=== PATIENT | female | born 1990 | race Caucasian/White ===

== ENCOUNTER 2017-11-12 13:32 | Emergency (ER) | payer BC ==
[2017-11-12 13:59] VITALS: BP 140/86
--- NOTE | 2017-11-12 14:34 | EDM.PDOC ---
ED HPI GENERAL MEDICAL PROBLEM - General Chief Complaint: Lower Extremity Injury/Pain Stated Complaint: R FOOT INJURY Time Seen by Provider: 11/12/17 14:10 Source of Information: Reports: Patient History Limitations: Reports: No Limitations - History of Present Illness INITIAL COMMENTS - FREE TEXT/NARRATIVE: 27-year-old female tripped over her dog and turned her right foot underneath her earlier today. She has pain at the base of the lateral metatarsals. Mild swelling. No ankle pain. No other injury. 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 - Infectious Disease History Infectious Disease History: Reports: Chicken Pox - Past Surgical History HEENT Surgical History: Reports: Oral Surgery Musculoskeletal Surgical History: Reports: Ganglion Cyst Social & Family History - Tobacco Use Smoking Status *Q: Current Every Day Smoker Years of Tobacco use: 8 Packs/Tins Daily: 0.5 Review of Systems - Review of Systems Review Of Systems: See Below Constitutional: Denies: Fever Respiratory: Denies: Shortness of Breath Cardiovascular: Denies: Chest Pain Neurological: Denies: Paresthesia Psychiatric: Reports: No Symptoms ED EXAM, GENERAL - Physical Exam Exam: See Below Exam Limited By: No Limitations General Appearance: Alert, No Apparent Distress Respiratory/Chest: No Respiratory Distress Extremities: Other (Exam is otherwise limited to the right foot. She has tenderness at the base of the fifth metatarsal but no crepitus, deformity or significant swelling. The ankle is nontender) Course - Vital Signs Last Recorded V/S: Last Vital Signs Temp 97 F 11/12/17 14:03 Pulse 85 11/12/17 14:03 Resp 13 11/12/17 14:03 BP 140/86 11/12/17 14:03 Pulse Ox 97 11/12/17 14:03 - Orders/Labs/Meds Orders: Active Orders 24 hr Category Date Time Status Foot Comp Min 3V Rt [CR] Stat Exams 11/12/17 14:11 Taken - Re-Assessments/Exams Free Text/Narrative Re-Assessment/Exam: 11/12/17 14:32 X-ray of the right foot was negative for fracture. A three-inch Kaleb wrap was applied to the foot, she can increase her activity as tolerated and recheck in 5 -7 days if not improving satisfactorily. Departure - Departure Time of Disposition: 14:38 Disposition: Home, Self-Care 01 Condition: Good Clinical Impression: Sprain of foot, right Qualifiers: Encounter type: initial encounter Qualified Code(s): S93.601A - Unspecified sprain of right foot, initial encounter - Discharge Information Instructions: Foot Sprain Referrals: Deena Diaz CNM [Primary Care Provider] - Forms: ED Department Discharge Care Plan Goals: Wrap for comfort, elevate when able and ibuprofen or naproxen should help. Increase activity as tolerated and recheck in 5-7 days if not improving satisfactorily. - My Orders Last 24 Hours: My Active Orders 11/12/17 14:11 Foot Comp Min 3V Rt [CR] Stat - Assessment/Plan Last 24 Hours: My Active Orders 11/12/17 14:11 Foot Comp Min 3V Rt [CR] Stat
--- NOTE | 2017-11-14 10:07 | CR ---
Findings: No fracture or dislocation. Hypertrophic change at the first distal phalanx.
== END 2017-11-12 14:38 | disposition home or self-care (01) ==
LOC: JP.ED 13:32
DX: S93.601A Unspecified sprain of right foot, initial encounter (principal); F17.210 Nicotine dependence, cigarettes, uncomplicated; Z88.0 Allergy status to penicillin; Z88.8 Allergy status to other drugs, medicaments and biological substances; W01.198A Fall on same level from slipping, tripping and stumbling with subsequent striking against other object, initial encounter
CPT/HCPCS: 73630-26-RT; 73630-RT; 99284

== ENCOUNTER 2019-06-17 08:40 | Inpatient (IN) | payer BC ==
[2019-06-17] MEDS ORDERED: Misoprostol 50 MCG (1/2 of 100 MCG) Tab VAG ONE ×2 (08:43→12:25)
[2019-06-17] MEDS ORDERED: Sodium Chloride 0.9% 10 ML Syringe FLUSH PRN (08:53)
--- NOTE | 2019-06-17 09:11 | PCM.LDHP ---
L&D History of Present Illness - General Date of Service: 06/17/19 (planned induction) Admit Problem/Dx: Patient Status Order with Admit Dx/Problem 06/17/19 08:53 Patient Status [ADT] Routine Admission Diagnosis/Problem Admission Diagnosis/Problem Source of Information: Patient History Limitations: Reports: No Limitations - History of Present Illness Introduction:: 29 year old who is 39 weeks gestation. Here for planned induction. History of 2 previous shoulder dystocia. Current fetus with right club foot. reactive NST this morning. nonsmoker. recent gastroenteritis on resolved. Labs: GBS neg, HIV neg, ABO O pos, Rubella immune Timing/Duration: Reports: minutes: (3) Location, : Reports: Abdomen Severity: Mild Improves with: Reports: None Worsens with: Reports: None - Related Data Allergies/Adverse Reactions: Allergies Allergy/AdvReac Type Severity Reaction Status Date / Time ceftazidime pentahydrate Allergy Severe Hives Verified 06/17/19 09:15 [From Fortaz] Penicillins Allergy Mild Rash Verified 06/17/19 09:15 Home Medications: Home Meds Aspirin [Ecotrin EC] 81 mg PO DAILY 01/29/19 [History] Pnv No.95/Ferrous Fum/Folic AC [ Caplet] 1 tab PO DAILY 01/29/19 [ History] Past Medical History - Past Health History Medical/Surgical History: Denies Medical/Surgical History HEENT History: Reports: Impaired Vision CANDLE MOLDER History: Reports: , Spontaneous : 4 Para: 2 LMP (Approximate): (MAXIMILIANO 06/24/19) Hematologic History: Reports: Other (See Below) 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 - Infectious Disease History Infectious Disease History: Reports: Chicken Pox - Past Surgical History HEENT Surgical History: Reports: Oral Surgery Musculoskeletal Surgical History: Reports: Ganglion Cyst H&P Review of Systems - Review of Systems: Review Of Systems: See Below General: Reports: No Symptoms HEENT: Reports: No Symptoms Pulmonary: Reports: No Symptoms Cardiovascular: Reports: No Symptoms Gastrointestinal: Reports: No Symptoms Genitourinary: Reports: No Symptoms Musculoskeletal: Reports: No Symptoms Skin: Reports: No Symptoms Psychiatric: Reports: No Symptoms Neurological: Reports: No Symptoms Hematologic/Lymphatic: Reports: No Symptoms Immunologic: Reports: No Symptoms L&D Exam - Exam Exam: See Below - OB Specific Contraction Intensity: Mild Movement: Active Heart Tones: Present Heart Rate (FHR) Variability: Moderate (6-25 bmp) Presentation: Vertex Estimated Weight: 7-8 pounds - Hart Score Hart Score Cervix Position: Midposition Hart Score Consistency: Soft Hart Score Effacement: 51-70% Hart Score Dilation: 1-2 cm Hart Score Infant's Station: -1 ,0 Hart Score Total: 8 - Exam General: Alert, Oriented HEENT: PERRLA Neck: Supple Lungs: Clear to Auscultation, Normal Respiratory Effort Cardiovascular: Regular Rate, Regular Rhythm GI/Abdominal Exam: Normal Bowel Sounds, Soft Genitourinary: Normal external exam, Cervical dilitation, Enlarged uterus Back Exam: Normal Inspection Extremities: Normal Range of Motion, No Pedal Edema, Normal Capillary Refill Skin: Warm, Dry, Intact Neurological: Reflexes Equal Bilateral Psychiatric: Alert, Normal Affect, Normal Mood - Problem List (1) Encounter for planned induction of labor SNOMED Code(s): 853590015 ICD Code: Z34.90 - ENCNTR FOR SUPRVSN OF NORMAL , UNSP, UNSP TRIMESTER Status: Acute Current Visit: Yes (2) SNOMED Code(s): 81148010 ICD Code: Z34.90 - ENCNTR FOR SUPRVSN OF NORMAL , UNSP, UNSP TRIMESTER Status: Acute Current Visit: Yes Qualifiers: Weeks of gestation: 39 weeks Qualified Code(s): Z3A.39 - 39 weeks gestation of Problem List Initiated/Reviewed/Updated: Yes Orders Last 24hrs: Active Orders 24 hr Category Date Time Status Patient Status [ADT] Routine ADT 06/17/19 08:53 Active Communication Order [RC] ASDIRECTED Care 06/17/19 08:53 Active Heart Tones [RC] PER UNIT ROUTINE Care 06/17/19 08:53 Active Non Stress Test [RC] Click to Edit Care 06/17/19 08:53 Active May Shower [RC] ASDIRECTED Care 06/17/19 08:53 Active Notify Provider Vital Signs [RC] PRN Care 06/17/19 08:53 Active Notify Provider [RC] PRN Care 06/17/19 08:53 Active Up ad Susan [RC] ASDIRECTED Care 06/17/19 08:53 Active Vital Signs [RC] PER UNIT ROUTINE Care 06/17/19 08:53 Active CBC WITH AUTO DIFF [HEME] Routine Lab 06/17/19 08:46 Ordered DRUG SCREEN, URINE [URCHEM] Routine Lab 06/17/19 08:44 Ordered URINALYSIS W/MICROSCOPIC [UA W/MICROSCOPIC] [URIN] Lab 06/17/19 08:44 Ordered Routine Oxytocin/Normal Saline [Pitocin in NS 20 Units/1,000 ML Med 06/17/19 08:57 Ordered ] 20 unit in 1,000 ml IV ONETIME Sodium Chloride 0.9% [Saline Flush] Med 06/17/19 08:53 Ordered 10 ml FLUSH ASDIRECTED PRN Saline Lock Insert [OM.PC] Routine Oth 06/17/19 08:53 Ordered Resuscitation Status Routine Resus Stat 06/17/19 08:53 Ordered Medication Orders Oxytocin/Sodium Chloride (Pitocin In Ns 20 Units/1,000 Ml) 20 unit in 1,000 mls @ 999 mls/hr IV ONETIME ONE; Protocol Stop: 06/17/19 09:57 Sodium Chloride (Saline Flush) 10 ml FLUSH ASDIRECTED PRN PRN Reason: Keep Vein Open Assessment/Plan Comment:: 06/17/19 29 year old 39 weeks induction of labor. [place] 8. reactive NST CE: baseline heart rate 145, cat one strip HGB 11.6, PLT 227 Plan: monitor for active labor reassess at noon plan for epidural later
[2019-06-17] MEDS ORDERED: Misoprostol 25 MCG (1/4 of 100 MCG) Tab ONE (13:05)
--- NOTE | 2019-06-17 13:11 | PCM.PNLD ---
Labor Progress Note - VS & Meds Vital Signs: Last Vital Signs Temp 95.5 F 06/17/19 09:30 Pulse 81 06/17/19 11:30 Resp 16 06/17/19 11:30 BP 129/78 06/17/19 11:30 Pulse Ox 96 06/17/19 11:30 Active Medications: Current Medications Oxytocin/Sodium Chloride (Pitocin In Ns 20 Units/1,000 Ml) 20 unit in 1,000 mls @ 999 mls/hr IV ASDIRECTED GERTRUDE; Protocol Sodium Chloride (Saline Flush) 10 ml FLUSH ASDIRECTED PRN PRN Reason: Keep Vein Open Discontinued Medications Misoprostol (Cytotec) 50 mcg VAG ONETIME ONE Stop: 06/17/19 08:44 Last Admin: 06/17/19 08:51 Dose: 50 mcg Misoprostol (Cytotec) 25 mcg VAG ONETIME ONE Stop: 06/17/19 12:26 Last Admin: 06/17/19 13:08 Dose: 25 mcg Misoprostol (Cytotec) Confirm Administered Dose 25 mcg .ROUTE .STK-MED ONE Stop: 06/17/19 13:06 Last Admin: 06/17/19 13:08 Dose: Not Given - Uterine Contractions Uterine Monitoring Mode: External [place] Contraction Frequency (min): 2-4 Contraction Duration (sec): 70-80 Contraction Intensity: Mild to Moderate Uterine Resting Tone: Soft - Monitoring Monitor Mode: Doppler/Auscultation Heart Rate (FHR) Baseline: 145 Heart Rate (FHR) Variability: Moderate (6-25 bmp) Accelerations: Present, 15x15 Decelerations: None Strip Review: Category I - Vaginal Exam Dilation (cm): 1-2 Effacement (Percent): 75 Station: 0 Cervical Position: Midposition Sterile Vaginal Exam Performed By: Deena Diaz Vaginal Exam Comment: slight change in dilation. - Labor Progress (Free Text) Labor Progress: contractions now about 3-4 minutes apart, are getting more uncomfortable. Second dose of Miso placed at 1300, 25 mcg. If no real change at 1600 will add pitocin. Cat one strip
[2019-06-17] MEDS ORDERED: Lactated Ringers 1,000 ML IV ONE (16:26)
[2019-06-17] MEDS ORDERED: ePHEDrine 50 MG/ML SDV IVPUSH PRN (16:26)
--- NOTE | 2019-06-17 16:27 | PCM.PNLD ---
Labor Progress Note - VS & Meds Vital Signs: Last Vital Signs Temp 95.5 F 06/17/19 09:30 Pulse 81 06/17/19 11:30 Resp 16 06/17/19 13:50 BP 131/70 06/17/19 13:50 Pulse Ox 96 06/17/19 11:30 Active Medications: Current Medications Oxytocin/Sodium Chloride (Pitocin In Ns 20 Units/1,000 Ml) 20 unit in 1,000 mls @ 999 mls/hr IV ASDIRECTED GRETRUDE; Protocol Sodium Chloride (Saline Flush) 10 ml FLUSH ASDIRECTED PRN PRN Reason: Keep Vein Open Discontinued Medications Misoprostol (Cytotec) 50 mcg VAG ONETIME ONE Stop: 06/17/19 08:44 Last Admin: 06/17/19 08:51 Dose: 50 mcg Misoprostol (Cytotec) 25 mcg VAG ONETIME ONE Stop: 06/17/19 12:26 Last Admin: 06/17/19 13:08 Dose: 25 mcg Misoprostol (Cytotec) Confirm Administered Dose 25 mcg .ROUTE .STK-MED ONE Stop: 06/17/19 13:06 Last Admin: 06/17/19 13:08 Dose: Not Given - Uterine Contractions Uterine Monitoring Mode: External [place] Contraction Frequency (min): 1.5-3 Contraction Duration (sec): 60-90 Contraction Intensity: Mild to Moderate Uterine Resting Tone: Soft - Monitoring Monitor Mode: Doppler/Auscultation Heart Rate (FHR) Baseline: 145 Heart Rate (FHR) Variability: Moderate (6-25 bmp) Accelerations: Present, 15x15 Decelerations: None Strip Review: Category I - Vaginal Exam Dilation (cm): 2 Effacement (Percent): 75 Station: 1 Cervical Position: Posterior Sterile Vaginal Exam Performed By: Deena Diaz Vaginal Exam Comment: baby is lower, cervix remains the same - Labor Progress (Free Text) Labor Progress: huong but not strong, coping wel1. Up and about CE: /+1 Cat one strip Plan: start pitocin fluids for epidural plan for vaginal delivery
[2019-06-17] MEDS ORDERED: Ropivacaine 100 ML ONE (17:35)
--- NOTE | 2019-06-17 19:20 | PCM.PNLD ---
Labor Progress Note - VS & Meds Vital Signs: Last Vital Signs Temp 97.9 F 06/17/19 16:00 Pulse 78 06/17/19 18:15 Resp 16 06/17/19 18:15 BP 129/77 06/17/19 18:15 Pulse Ox 98 06/17/19 18:15 Active Medications: Current Medications Ephedrine Sulfate (Ephedrine Sulfate) 10 mg IVPUSH ASDIRECTED PRN PRN Reason: Hypotension Oxytocin/Sodium Chloride (Pitocin In Ns 20 Units/1,000 Ml) 20 unit in 1,000 mls @ 999 mls/hr IV ASDIRECTED GERTRUDE; Protocol Oxytocin/Sodium Chloride (Pitocin In Ns 20 Units/1,000 Ml) 20 unit in 1,000 mls @ 6 mls/hr IV TITRATE GERTRUDE; Protocol Last Admin: 06/17/19 16:29 Dose: 2 munits/min, 6 mls/hr Sodium Chloride (Saline Flush) 10 ml FLUSH ASDIRECTED PRN PRN Reason: Keep Vein Open Discontinued Medications Lactated Ringer's (Ringers, Lactated) 1,000 mls @ 999 mls/hr IV .BOLUS ONE Stop: 06/17/19 17:26 Last Admin: 06/17/19 16:32 Dose: 999 mls/hr Ropivacaine (Naropin 0.2%) Confirm Administered Dose 100 mls @ as directed .ROUTE .STK-MED ONE Stop: 06/17/19 17:36 Misoprostol (Cytotec) 50 mcg VAG ONETIME ONE Stop: 06/17/19 08:44 Last Admin: 06/17/19 08:51 Dose: 50 mcg Misoprostol (Cytotec) 25 mcg VAG ONETIME ONE Stop: 06/17/19 12:26 Last Admin: 06/17/19 13:08 Dose: 25 mcg Misoprostol (Cytotec) Confirm Administered Dose 25 mcg .ROUTE .STK-MED ONE Stop: 06/17/19 13:06 Last Admin: 06/17/19 13:08 Dose: Not Given - Uterine Contractions Uterine Monitoring Mode: External [employer] Contraction Frequency (min): 1.5-3 Contraction Duration (sec): 60-80 Contraction Intensity: Moderate Uterine Resting Tone: Soft - Monitoring Monitor Mode: Doppler/Auscultation Heart Rate (FHR) Baseline: 145 Heart Rate (FHR) Variability: Moderate (6-25 bmp) Accelerations: Present, 15x15 Decelerations: None, Early, Intermittent (<50% x 20 min) Strip Review: Category I - Vaginal Exam Dilation (cm): 4 Effacement (Percent): 80 Station: 1 Cervical Position: Anterior Sterile Vaginal Exam Performed By: Deena Diaz Vaginal Exam Comment: AROM, clear fluid. - Labor Progress (Free Text) Labor Progress: good CTX pattern, epidural working well Cat one strip AROM clear fluid 4/80/+1, head well applied. Anticipate a vaginal delivery
--- NOTE | 2019-06-17 20:03 | ANES ---
DATE OF SERVICE: 06/17/2019 INDICATION: Aishwarya is a 29-year-old female, patient of Deena Diaz. She is in her OB unit, and I was asked to assess her for labor epidural. She is a 39 week, G3, P2, requesting a labor epidural. I reviewed her medical history, lab work, and discussed with her risks and benefits of procedure. She was okay to proceed and consent was received. TECHNIQUE: I had her seated at the edge of the bed. Betadine prep x3 to lumbar region. Sterile drape was placed, 1% lidocaine skin wheal as well as deep at the L3-L4 region approximate. A 17-gauge Tuohy was placed to loss of resistance. Negative CSF, negative heme, negative paresthesia. I then threaded a catheter to 14 cm. Needle was removed. The catheter was secured, a test dose through the catheter of 3 mL of 1.5% lidocaine 1:200,000 epinephrine. Upon completion, I placed her in a supine position, dosed her with 0.2% ropivacaine 12 mL and then began infusion of that same 12 mL an hour. She tolerated the procedure quite well. Please refer to nurse's notes for vital signs and neuro status, which are unchanged and within normal limits. Again, she tolerated the procedure quite well. Jhon Cartagena CRNA /[id number]
[2019-06-17] MEDS ORDERED: fentaNYL 100 MCG/2 ML SDV ONE (22:09)
[2019-06-17] MEDS: Ondansetron 4 MG/2 ML SDV IVPUSH PRN (22:31)
[2019-06-17] MEDS ORDERED: Ropivacaine 200 MG in Premix Bag 1 BAG EPIDUR SCH (22:45)
[2019-06-18] MEDS ORDERED: Propofol 200 MG/20 ML SDV ONE (00:09)
[2019-06-18] MEDS ORDERED: Succinylcholine 200 MG/10 ML MDV ONE (00:09)
--- NOTE | 2019-06-18 00:14 | PCM.PNLD ---
Labor Progress Note - VS & Meds Vital Signs: Last Vital Signs Temp 98.6 F 06/17/19 21:00 Pulse 81 06/17/19 21:00 Resp 18 06/17/19 21:00 BP 127/73 06/17/19 21:00 Pulse Ox 99 06/17/19 21:00 Active Medications: Current Medications Ephedrine Sulfate (Ephedrine Sulfate) 10 mg IVPUSH ASDIRECTED PRN PRN Reason: Hypotension Oxytocin/Sodium Chloride (Pitocin In Ns 20 Units/1,000 Ml) 20 unit in 1,000 mls @ 999 mls/hr IV ASDIRECTED GERTRUDE; Protocol Oxytocin/Sodium Chloride (Pitocin In Ns 20 Units/1,000 Ml) 20 unit in 1,000 mls @ 6 mls/hr IV TITRATE GERTRUDE; Protocol Last Titration: 06/17/19 21:03 Dose: 3 munits/min, 9 mls/hr Ropivacaine 200 mg/ Premix 100 mls @ 12 mls/hr EPIDUR ASDIRECTED GERTRUDE Ondansetron HCl (Zofran) 4 mg IVPUSH Q4H PRN PRN Reason: Nausea/Vomiting Last Admin: 06/17/19 22:31 Dose: 4 mg Sodium Chloride (Saline Flush) 10 ml FLUSH ASDIRECTED PRN PRN Reason: Keep Vein Open Discontinued Medications Fentanyl (Sublimaze) Confirm Administered Dose 100 mcg .ROUTE .STK-MED ONE Stop: 06/17/19 22:10 Lactated Ringer's (Ringers, Lactated) 1,000 mls @ 999 mls/hr IV .BOLUS ONE Stop: 06/17/19 17:26 Last Admin: 06/17/19 16:32 Dose: 999 mls/hr Ropivacaine (Naropin 0.2%) Confirm Administered Dose 100 mls @ as directed .ROUTE .STK-MED ONE Stop: 06/17/19 17:36 Misoprostol (Cytotec) 50 mcg VAG ONETIME ONE Stop: 06/17/19 08:44 Last Admin: 06/17/19 08:51 Dose: 50 mcg Misoprostol (Cytotec) 25 mcg VAG ONETIME ONE Stop: 06/17/19 12:26 Last Admin: 06/17/19 13:08 Dose: 25 mcg Misoprostol (Cytotec) Confirm Administered Dose 25 mcg .ROUTE .STK-MED ONE Stop: 06/17/19 13:06 Last Admin: 06/17/19 13:08 Dose: Not Given - Uterine Contractions Uterine Monitoring Mode: External [place] Contraction Frequency (min): 1.5-2 Contraction Duration (sec): 50-70 Contraction Intensity: Moderate to Strong Uterine Resting Tone: Soft - Monitoring Monitor Mode: Doppler/Auscultation Heart Rate (FHR) Baseline: 145 Heart Rate (FHR) Variability: Moderate (6-25 bmp) Accelerations: Present, 15x15 Decelerations: None, Early, Intermittent (<50% x 20 min) Strip Review: Category II - Vaginal Exam Dilation (cm): 10 Effacement (Percent): 100 Station: 1 Cervical Position: Anterior Sterile Vaginal Exam Performed By: Deena Diaz - Labor Progress (Free Text) Labor Progress: pushing without progress for over an hour, Meconium present, heart tones with variable decels to 80's. Baby recovers after pushing. Vacuum attended with two push cycles without any progress. No pop off. Discussed alternative delivery. Patient and willing to proceed to c section. pitocin off. epidural infusing. Staff notified and OR crew called.
[2019-06-18] MEDS ORDERED: Oxytocin 10 Units/1 ML SDV ONE (00:21)
[2019-06-18] MEDS ORDERED: cefOXitin 1 GM Vial ONE (00:26)
[2019-06-18] MEDS ORDERED: fentaNYL 250 MCG/5 ML SDV ONE (00:37)
[2019-06-18] MEDS ORDERED: cefOXitin 2 GM Vial ONE (00:39)
[2019-06-18] MEDS ORDERED: Ondansetron 4 MG/2 ML SDV ONE (00:46)
[2019-06-18] MEDS ORDERED: Ketorolac 60 MG/2 ML SDV ONE (01:20)
[2019-06-18] MEDS ORDERED: hydrOXYzine HCL 100 MG/2 ML SDV IM PRN (01:30)
[2019-06-18] MEDS ORDERED: hydrOXYzine HCL 100 MG/2 ML SDV IM ONE (01:49)
[2019-06-18] MEDS ORDERED: Naloxone 0.4 MG/ML SDV IV PRN (02:13)
[2019-06-18] MEDS ORDERED: Oxytocin 10 Units/1 ML SDV IV ONE (04:07)
[2019-06-18] MEDS: HYDROmorphone/Normal Saline 15 MG/30 ML PCA IV PRN (04:28)
[2019-06-18] MEDS: cefOXitin 2 GM in Sodium Chloride 0.9% 50 ML IV SCH ×3 (05:58→17:43)
[2019-06-18] MEDS ORDERED: Dextrose 5%-Lactated Ringers 1,000 ML IV SCH (08:00)
--- NOTE | 2019-06-18 08:34 | ANES ---
DATE OF SERVICE: 06/17/2019 ADDENDUM: Aishwarya is a 29-year-old female, patient of Deena Diaz. I was asked to come in to assess the patient for increased pain with epidural placement previously. Upon arrival, I discovered that catheter had been disconnected at the filter site. I opened a new kit and replaced connections and bolused her with 10 mL of 0.2% ropivacaine with 2 mL of fentanyl, total of 100 of fentanyl in 12 mL. She tolerated this quite well. Jhon Cartagena CRNA /[id number]
[2019-06-18] MEDS: Dextrose 5%-Lactated Ringers 1,000 ML IV SCH ×2 (10:32→22:28)
[2019-06-18] MEDS: Ondansetron 4 MG/2 ML SDV IVPUSH PRN (10:35)
--- NOTE | 2019-06-18 11:19 | PN ---
DATE OF SERVICE: 06/18/2019 SUBJECTIVE: Aishwarya had a right around midnight. She reports her pain is controlled with a INSPECTOR [employer]URN[employer]. She does have Factor V Leiden. Hemoglobin this morning is 8.1. Prior to the , it was 11.6. Winters catheter output is 1700. Oral intake is 1000. REVIEW OF SYSTEMS: Remainder of review of systems negative for any pertinent positives and negatives. OBJECTIVE: GENERAL: Aishwarya Allen is a pleasant 29-year-old female. She is alert and orientated. VITAL SIGNS: Pulse 75, blood pressure 92/47, and O2 by pulse oximetry is 98% on room air. HEENT: Negative. NECK: Supple. HEART: Regular rate and rhythm. LUNGS: Clear. ABDOMEN: Dressing dry and intact. EXTREMITIES: SCDs are on. Minimal peripheral edema. ASSESSMENT: section for term with failure to progress, heart rate deceleration, and meconium staining. Date, 06/18/2019. Surgeon, Robe Arango MD. PLAN: 1. Check CBC in a.m. 2. Check ferritin on the blood already drawn for today. 3. Discontinue Winters catheter. 4. Full liquid diet. 5. May shower. 6. IV decreased to 100 mL per hour. 7. Ibuprofen 600 mg q.6 hours scheduled, started 1600. 8. Tylenol 650 mg oral q.6 hours, started 1400. 9. Ambulate 6 times daily. 10.Good pulmonary toilet. 11.We will evaluate p.r.n. or in a.m. Shelly Mcneal PA-C /[id number]
[2019-06-18] MEDS: Docusate Sodium 100 MG Cap PO SCH ×2 (12:16→20:08)
[2019-06-18] MEDS: Acetaminophen 325 MG Tab PO SCH ×2 (14:14→20:08)
[2019-06-18] MEDS: Sodium Ferric Gluconate Cmplex 250 MG in Sodium Chloride 0.9% 100 ML IV SCH (14:27)
[2019-06-18] MEDS: Ibuprofen 600 MG Tab PO SCH ×2 (16:14→22:29)
[2019-06-19] MEDS: cefOXitin 2 GM in Sodium Chloride 0.9% 50 ML IV SCH ×4 (00:33→18:31)
[2019-06-19] MEDS: Acetaminophen 325 MG Tab PO SCH ×4 (02:10→20:36)
[2019-06-19] MEDS: HYDROmorphone/Normal Saline 15 MG/30 ML PCA IV PRN (02:37)
[2019-06-19] MEDS: Ibuprofen 600 MG Tab PO SCH ×4 (05:23→21:31)
[2019-06-19] MEDS ORDERED: Lanolin 100% Cream 40 GM Tube TOP PRN (08:14)
[2019-06-19] MEDS: Docusate Sodium 100 MG Cap PO SCH ×2 (08:21→20:37)
[2019-06-19] MEDS: Aspirin 81 MG Tab.EC PO SCH (08:21)
[2019-06-19] MEDS: Bisacodyl 5 MG Tab PO SCH ×2 (08:22→20:36)
[2019-06-19] MEDS: HYDROmorphone 2 MG Tab PO PRN ×3 (09:37→22:17)
[2019-06-19] MEDS: Sodium Ferric Gluconate Cmplex 250 MG in Sodium Chloride 0.9% 100 ML IV SCH (11:49)
[2019-06-20] MEDS: Acetaminophen 325 MG Tab PO SCH ×2 (01:21→10:32)
[2019-06-20] MEDS: cefOXitin 2 GM in Sodium Chloride 0.9% 50 ML IV SCH ×2 (01:21→06:25)
[2019-06-20] MEDS: HYDROmorphone 2 MG Tab PO PRN (04:22)
[2019-06-20] MEDS: Ibuprofen 600 MG Tab PO SCH ×2 (04:22→11:55)
--- NOTE | 2019-06-20 09:16 | DISCH ---
ADMISSION DIAGNOSES: 1. Intrauterine of 39 weeks. 2. Factor V Leiden. 3. section for term with failure to progress, heart deceleration and meconium staining. 4. Date of surgery: 06/18/2019. Surgeon: Robe Arango MD. 5. Hemoglobin 7.7, symptomatic, requiring 2 units of packed red blood cells. HISTORY: Aishwarya Allen is a 29-year-old female who presented to the hospital for Pitocin induction. She had failure to progress, and after preoperative evaluation and discussion of possible risks and possible complications, she wished to proceed with surgical procedure. HOSPITAL COURSE: Aishwarya presented to the hospital, admitted by Deena Diaz CNM for induction. She had an epidural placed and showed failure of progression. She is 4, para 2, and a history of 2 previous shoulder dystocia. Current fetus has right clubfoot. With failure to progress, heart rate deceleration, she did have a on 06/18/2019. There were no operative complications. Vital signs were stable. Her pain was controlled. On 06/19/2019, she did report some dizziness and was symptomatic with low hemoglobin and she was given 2 units of packed red blood cells. On discharge day, 06/20/2019, Aishwarya states her pain is controlled, vital signs stable. She is up, ambulating. Reports that she is ready to be discharged. PHYSICAL EXAMINATION: GENERAL: Aishwarya Allen is a pleasant 29-year-old female. VITAL SIGNS: Height is 5 feet 3 inches, weight is 169 pounds, BMI is 29.9. TPR is 96. The last TPR is 06/19/2019 at 2033, and is 96.7, 82, 16, blood pressure 126/76. HEENT: Negative. NECK: Supple. HEART: Regular rate and rhythm. LUNGS: Clear. ABDOMEN: Aquacel dressing is on. Abdominal binder is on. EXTREMITIES: Without peripheral edema. DISPOSITION: Discharged to home. CONDITION: Stable and improving. FOLLOWUP: With Shelly Mcneal PA-C, 06/28/2019 at 10 a.m. Check a CBC at 9:45 a.m. before appointment. To follow up with Deena Diaz, appointment will be made per her recommendations. HOME MEDICATIONS: 1. Tylenol 650 mg oral q.6 hours, #100, 11 refills. 2. Colace 100 mg oral twice daily, #60, 1 refill. 3. Dilaudid 2 mg every 6 hours p.r.n. pain #28. 4. Motrin 600 mg q.6 hours p.r.n. pain #120. 5. Lanolin topical use as directed. 6. She is to resume taking aspirin 81 mg p.o. daily and vitamins 1 daily as directed. DIET: Usual diet as tolerated. Drink 8 to 10 glasses of water a day. ACTIVITY: No lifting greater than 10 pounds for 6 weeks. May lift no more than baby in car seat. Other activity: Walk at least 6 times daily inside your home. Driving: Do not drive for 1 week and while on pain medication. Shower/bathing: May shower. DISCHARGE INSTRUCTIONS: Notify provider if any fever, increased pain, nausea, vomiting. Keep site clean and dry.
[2019-06-20 10:24] VITALS: BP 116/70; PULSE 87
[2019-06-20] MEDS: Aspirin 81 MG Tab.EC PO SCH (10:32)
[2019-06-20] MEDS: Bisacodyl 5 MG Tab PO SCH (10:32)
[2019-06-20] MEDS: Docusate Sodium 100 MG Cap PO SCH (10:32)
--- NOTE | 2019-06-21 09:27 | PN ---
DATE OF SERVICE: 06/19/2019 The patient is postop day 1 from a section. From a factual standpoint, it is more or less postop day 1-1/2 as her happened at midnight. She is presently on regular diet. We will go to oral pain medication exclusively today, getting her off the WINE MANAGER Dilaudid, offering oral Dilaudid p.r.n., in addition to the scheduled Motrin and Tylenol. Some bowel stimulation will be undertaken today. She was feeling fairly lightheaded yesterday with hemoglobin in the 7's. She was given 2 units of packed RBCs, which did bring her hemoglobin up today to 8.7, and she feels quite comfortable with that. Of note, her ferritin yesterday was quite low at 9, and she did receive an iron injection to help bring that up, and she received a second injection of ferric gluconate today as well. If she remains stable, she may be ready for discharge home tomorrow. Robe Arango MD /[id number]
--- NOTE | 2019-06-26 13:08 | OR ---
DATE OF PROCEDURE: 06/18/2019 SURGEON: Robe Arango MD PREOPERATIVE DIAGNOSIS: Term with failure to progress. POSTOPERATIVE DIAGNOSIS: Term with failure to progress. OPERATIVE PROCEDURE: section ([id number]). ANESTHESIA: General. ELEMENTARY SCHOOL PRINCIPAL: Esther Diaz CNM. INDICATIONS FOR PROCEDURE: A 29-year-old presenting with a term . She was admitted for induction and progressed to more or less a complete stage. Despite various attempts at vaginal delivery, these were unsuccessful. The baby did have some decelerations and some meconium staining of the amniotic fluid was noted. Given all this, the plan is at this point to proceed with an urgent section. Potential risks of the procedure were reviewed with the patient including bleeding, infection, injury to mother and/or baby as well as the possibility of cardiopulmonary, septic, or hemorrhagic complications leading to , and the patient wishes to proceed. DETAILS OF PROCEDURE: The patient was taken to the operating room and placed in a supine position with a roll underneath the right hip. The Winters catheter was inserted , and the abdomen prepped and draped. Following this, then general anesthetic was induced, and once the intubation had been completed, a midline incision from the umbilicus to the pubis was made and carried down through the skin and subcutaneous tissue and midline fascia and peritoneum. Peritoneal reflection of the bladder on the uterus was divided and the bladder then reflected downward. A transverse uterine incision was made and a viable male was delivered through the vertex presentation. The head was densely impacted into the pelvis and Esther Diaz needed to push the baby up to allow a vaginal delivery. The cord was around the baby's neck, and the cord was then clamped and cut and routine care given off the field. The baby had score of 7 and 9 at one and five minutes respectively and did not appear to have a significant meconium aspiration. Placenta and membranes were then delivered without difficulty. The patient was given IV and intrauterine oxytocin and IV cefoxitin. Good uterine contractions were noted. The uterus was then closed with 2 layers of 2- 0 Vicryl stitch as was the peritoneal reflection of the bladder on the uterus, and the midline peritoneum then approximated with a #2 Vicryl stitch as was the anterior rectus sheath. The subcutaneous tissue was then irrigated with antibiotic-containing saline solution and closed with 2 layers of 3-0 and 4-0 Vicryl stitch deep and radha for the skin. Dressing was applied. The patient was taken to the recovery room in satisfactory condition. The patient did appear to have somewhat more bleeding than average and almost all of the bleeding from the uterine edges at the incision site needed to be closed by means of a suture rather than spontaneously clotting. The patient remained hemodynamically stable. She did have blood loss probably in the range of 300 to 500 mL and was taken to the recovery room in satisfactory condition. Robe Arango MD /[id number] MTDD
== END 2019-06-20 12:05 | disposition home or self-care (01) | DRG 540 ==
LOC: JP.OBCHECK 08:40 → EDSTATUS 08:48 → JP.OB 08:48 → OBSVTOIN 06-18 00:38 → JP.MS 06-18 00:45
PROVIDERS: ADMIT Nurse Practitioner Family; ATTEND Surgery
PROC: 10D00Z1 Extraction of Products of Conception, Low, Open Approach (ICD-10-PCS; principal; 2019-06-18)
DX: O76 Abnormality in fetal heart rate and rhythm complicating labor and delivery (principal); O77.0 Labor and delivery complicated by meconium in amniotic fluid; O62.2 Other uterine inertia; Z37.0 Single live birth; Z3A.39 39 weeks gestation of pregnancy
CPT/HCPCS: 36415; 36430; 51702; 59409; 80305-QW; 81001; 82728; 85018; 85025; 86850; 86900; 86901; 86920; 86922; 88307; 94762; A9270-GY; J0330; J0694; J1170; J1885; J2405; J2590; J2704; J2795; J2916; J3010; J7050; J7120; J7121; P9016

== ENCOUNTER 2020-02-09 19:30 | Emergency (ER) | payer BC, MEDICAID, OTHER, SELFPAY ==
[2020-02-09 19:44] VITALS: BP 138/81; PULSE 70
--- NOTE | 2020-02-09 20:08 | EDM.PDOC ---
ED HPI GENERAL MEDICAL PROBLEM - General Chief Complaint: Bite:Animal, Insect Stated Complaint: BEE STING REACTION Time Seen by Provider: 02/09/20 19:53 Source of Information: Reports: Patient, RN, RN Notes Reviewed History Limitations: Reports: No Limitations - History of Present Illness INITIAL COMMENTS - FREE TEXT/NARRATIVE: Bee/wasp sting yesterday after noon. Area on left inner aspect of knee red, warm, swollen and has raised central area around point where stung. Onset: Sudden Onset Date: 02/08/20 Onset Time: 13:00 Duration: Constant Location: Reports: Lower Extremity, Left (inner aspect of left knee) Quality: Reports: Burning Severity: Moderate Improves with: Reports: Cold Therapy Worsens with: Reports: Movement Context: Reports: Trauma Associated Symptoms: Denies: Confusion, Chest Pain, Diaphoresis, Fever/Chills, Headaches, Loss of Appetite, Malaise, Nausea/Vomiting, Rash, Shortness of Breath Treatments MANAGER PART: Reports: Acetaminophen, NSAIDS, Other (see below) Other Treatments MANAGER PART: topical antihistamine left inner knee bee sting Pain Score (Numeric/FACES): 7 - Related Data Allergies Allergy/AdvReac Type Severity Reaction Status Date / Time ceftazidime pentahydrate Allergy Severe Hives Verified 02/09/20 19:48 [From Fortaz] Penicillins Allergy Mild Airway Verified 02/09/20 19:48 Tightness Home Meds: Home Meds Acetaminophen [Tylenol] 650 mg PO Q6H #100 tablet 06/20/19 [Rx] Ibuprofen [Motrin] 600 mg PO Q6H PRN #120 tablet 06/20/19 [Rx] Past Medical History - Past Health History Medical/Surgical History: Denies Medical/Surgical History HEENT History: Reports: Impaired Vision BAGGAGEMAN History: Reports: , Spontaneous Hematologic History: Reports: Other (See Below) 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 - Infectious Disease History Infectious Disease History: Reports: Chicken Pox - Past Surgical History HEENT Surgical History: Reports: Oral Surgery Female Surgical History: Reports: Section Musculoskeletal Surgical History: Reports: Ganglion Cyst Social & Family History - Family History Family Medical History: Unobtainable - Tobacco Use Smoking Status *Q: Current Every Day Smoker Years of Tobacco use: 10 Packs/Tins Daily: 0.5 - Caffeine Use Caffeine Use: Reports: Coffee, Soda - Recreational Drug Use Recreational Drug Use: No ED ROS GENERAL - Review of Systems Review Of Systems: See Below Constitutional: Denies: Fever, Chills HEENT: Denies: Throat Swelling Respiratory: Denies: Shortness of Breath, Wheezing, Cough Cardiovascular: Denies: Chest Pain, Edema Endocrine: Denies: Fatigue GI/Abdominal: Reports: No Symptoms : Reports: No Symptoms Skin: Reports: Pruritis, Change in Color (bright red area of inner knee with central raised area approx 3 cm where stung) Neurological: Reports: No Symptoms Immunologic: Reports: Environmental Allergy, Seasonal Allergy ED EXAM, ANIMAL BITE - Physical Exam Exam: See Below Exam Limited By: No Limitations General Appearance: Alert, WD/WN, No Apparent Distress Respiratory/Chest: No Respiratory Distress, Lungs Clear, Normal Breath Sounds Cardiovascular: Normal Peripheral Pulses, Regular Rate, Rhythm, No Edema Extremities: Normal Range of Motion (left inner knee), No Pedal Edema, Normal Capillary Refill, Increased Warmth, Redness Neurological: Alert, Oriented, CN II-XII Intact, Normal Cognition, Normal Gait Psychiatric: Normal Affect, Normal Mood Skin Exam: Warm/Dry. No: Normal Color (as described above) Course - Vital Signs Last Recorded V/S: Last Vital Signs Temp 37.4 C 02/09/20 19:44 Pulse 70 02/09/20 19:44 Resp 16 02/09/20 19:44 BP 138/81 02/09/20 19:44 Pulse Ox 98 02/09/20 19:44 - Re-Assessments/Exams Free Text/Narrative Re-Assessment/Exam: 02/09/20 20:19 Educated sxs of anaphylactic reaction. SxS to report. May continue to use warm or cool compresses per comfort response, Tylenol/Ibuprofen for pain, Benadryl topical for itch. Departure - Departure Time of Disposition: 20:09 Disposition: Home, Self-Care 01 Clinical Impression: Bee sting, Local reaction to bee sting - Discharge Information *PRESCRIPTION DRUG MONITORING PROGRAM REVIEWED*: No *COPY OF PRESCRIPTION DRUG MONITORING REPORT IN PATIENT MEDHAT: No Instructions: Bee, Wasp, or Hornet Sting, Adult Referrals: Deena Diaz CNM [Primary Care Provider] - Forms: ED Department Discharge Additional Instructions: May use benadryl cream at the site of sting to help reduce itch. Tylenol or Ibu profen for the pain. Monitor for signs or symptoms of reaction including shortness of breath, increase heart rate, infection. Proceed to nearest ER if having difficulty breathing. Avoid future bee/wasp stings as discussed. Avoid known nests or areas where visibly obvious bees/wasps are present. Sepsis Event Note (ED) - Evaluation Sepsis Screening Result: No Definite Risk - Focused Exam Vital Signs: Vital Signs Temp Pulse Resp BP Pulse Ox 02/09/20 19:44 37.4 C 70 16 138/81 98 02/09/20 19:42 37.4 C 70 16 138/81 98
== END 2020-02-09 20:17 | disposition home or self-care (01) ==
LOC: JP.ED 19:30
DX: T63.441A Toxic effect of venom of bees, accidental (unintentional), initial encounter (principal); F17.210 Nicotine dependence, cigarettes, uncomplicated; Z88.0 Allergy status to penicillin; Z88.8 Allergy status to other drugs, medicaments and biological substances; Z98.890 Other specified postprocedural states
CPT/HCPCS: 99282

== ENCOUNTER 2023-05-03 07:59 | Day surgery (SDC) | payer MEDICAID ==
[2023-05-03] MEDS ORDERED: fentaNYL 50 MCG/ML SDV ONE (08:16)
[2023-05-03] MEDS ORDERED: Propofol 200 MG/20 ML SDV ONE (08:16)
[2023-05-03] MEDS ORDERED: Midazolam 1 MG/ML 2 ML SDV ONE (08:16)
[2023-05-03] MEDS ORDERED: Lactated Ringers 1,000 ML IV SCH (09:00)
[2023-05-03 10:48] VITALS: BP 115/70; PULSE 68
== END 2023-05-03 10:50 | disposition home or self-care (01) ==
LOC: JP.SDS 07:59
PROVIDERS: ATTEND Student in an Organized Health Care Education/Training Program
DX: K29.50 Unspecified chronic gastritis without bleeding (principal); K21.00 Gastro-esophageal reflux disease with esophagitis, without bleeding; K44.9 Diaphragmatic hernia without obstruction or gangrene
CPT/HCPCS: 81025; J2250; J2704; J3010; J7120

== ENCOUNTER 2023-06-28 08:04 | Day surgery (SDC) | payer MEDICAID ==
[~2023-06-28 08:04] MED LIST: Bupivacaine 0.5%/EPINEPHrine 1:200,000 50 ML MDV ONE
[2023-06-28] MEDS ORDERED: fentaNYL 250 MCG/5 ML SDV ONE ×2 (08:23→11:32)
[2023-06-28] MEDS ORDERED: Glycopyrrolate 0.2 MG/ML 5 ML MDV ONE (08:24)
[2023-06-28] MEDS ORDERED: Succinylcholine 200 MG/10 ML MDV ONE (08:24)
[2023-06-28] MEDS ORDERED: Neostigmine Methylsulfate 10 MG/10 ML MDV ONE (08:24)
[2023-06-28] MEDS ORDERED: Propofol 200 MG/20 ML SDV ONE (08:24)
[2023-06-28] MEDS ORDERED: Rocuronium 50 MG/5 ML Vial ONE (08:24)
[2023-06-28] MEDS ORDERED: Dexamethasone 4 MG/ML SDV ONE (08:24)
[2023-06-28] MEDS ORDERED: Ondansetron 4 MG/2 ML SDV ONE (08:24)
[2023-06-28] MEDS ORDERED: Ertapenem 1 GM in Sodium Chloride 0.9% 50 ML IV ONE (08:30)
[2023-06-28] MEDS ORDERED: Acetaminophen 500 MG Tab PO ONE (08:30)
[2023-06-28] MEDS ORDERED: Sodium Chloride 0.9% 1,000 ML IV SCH (09:00)
[2023-06-28] MEDS ORDERED: Enoxaparin 30 MG/0.3 ML Syringe SUBCUT ONE (09:00)
[2023-06-28] MEDS ORDERED: Indocyanine Green 25 MG SDV IV ONE (09:00)
[2023-06-28 09:21] LABS: HEMATOCRIT 38.7 % (34.3-46.0); HEMOGLOBIN 13.7 g/dL (11.2-15.5); MEAN CORPUSCULAR HEMOGLOBIN 30.3 pg (31.6-35.5); MEAN CORPUSCULAR HGB CONC 35.4 g/dL (31.6-35.5); MEAN CORPUSCULAR VOLUME 85.6 fL (81.4-99.0); RED BLOOD CELL COUNT 4.52 M/uL (3.77-5.24); WHITE BLOOD CELL COUNT,WBC 4.5 K/uL (3.2-11.0)
[2023-06-28 09:41] LABS: ALANINE AMINOTRANSFERASE,ALT 43 U/L (12-78); ALBUMIN 3.4 g/dL (3.4-5.0); ALKALINE PHOSPHATASE 67 U/L (46-116); ASPARTATE AMNIOTRANSFERASE,AST 18 U/L (15-37); BILIRUBIN TOTAL 0.4 mg/dL (0.2-1.0); BLOOD UREA NITROGEN,BUN 9 mg/dL (7-18); CALCIUM 8.2 mg/dL (8.5-10.1); CARBON DIOXIDE,CO2 25 mmol/L (21-32); CHLORIDE,CL 104 mmol/L (100-108); CREATININE 0.7 mg/dL (0.6-1.0); EST CRCL DRUG DOSING (CG) 94.56 mL/min; ESTIMATED GFR 117 mL/min (>60); GLUCOSE RANDOM 92 mg/dL (74-106); MAGNESIUM 1.7 mg/dL (1.8-2.4); POTASSIUM,K 4.2 mmol/L (3.6-5.2); PROTEIN TOTAL,TP 6.7 g/dL (6.4-8.2); SODIUM,NA 139 mmol/L (140-148)
[2023-06-28 09:44] LABS: ANION GAP 14.2 mmol/L (5.0-14.0)
[2023-06-28] MEDS ORDERED: Scopalamine 1mg/3day Transdermal Patch TOP SCH (10:00)
[2023-06-28] MEDS ORDERED: Magnesium Sulfate/Water 2 GM in Premix Bag 1 BAG IV ONE (12:00)
[2023-06-28] MEDS ORDERED: Labetalol 20 MG/4 ML Syringe ONE (12:01)
[2023-06-28] MEDS ORDERED: Lactated Ringers 1,000 ML ONE (12:28)
[2023-06-28] MEDS ORDERED: Acetaminophen/HYDROcodone 325-5 MG Tab PO PRN (13:29)
[2023-06-28 15:17] VITALS: BP 134/83; PULSE 85
== END 2023-06-28 15:25 | disposition home or self-care (01) ==
LOC: JP.SDS 08:04 → JP.SDSSCHI 08:04 → UNDOADMIN 08:04 → JP.SDS 15:25 → UNDODISIN 15:25
PROVIDERS: ATTEND Student in an Organized Health Care Education/Training Program
DX: K81.1 Chronic cholecystitis (principal); K21.9 Gastro-esophageal reflux disease without esophagitis; F17.210 Nicotine dependence, cigarettes, uncomplicated; Z79.899 Other long term (current) drug therapy; Z88.8 Allergy status to other drugs, medicaments and biological substances
CPT/HCPCS: 36415; 47563; 80053; 81025; 83735; 84100; 85027; 88304; A9270; J1100; J1335; J1650; J1920; J2405; J2704; J2710; J3010; J3475; J3490; J7030; J7120; J0330